=== PATIENT | female | born 1965 | race American Indian/Alaskan Native ===

== ENCOUNTER 2016-11-24 08:21 | Emergency (ER) | payer BC ==
[2016-11-24 08:34] VITALS: TEMP 98.3
[2016-11-24] MEDS ORDERED: Sodium Chloride 0.9% 1,000 ML IV ONE (09:21)
[2016-11-24] MEDS ORDERED: Sodium Chloride 0.9% 1,000 ML ONE (09:32)
[2016-11-24 09:35] LABS: WHITE BLOOD COUNT 6.9 K/uL (4.8-10.8)
[2016-11-24 09:41] LABS: HEMATOCRIT 32.3 % (34.0-47.0); MEAN CELL VOLUME 68.7 fL (81.0-99.0); MEAN CORPUSCULAR HEMOGLOBIN 21.9 pg (27.0-31.0); MEAN CORPUSCULAR HGB CONC 31.8 g/dL (33.0-37.0); MEAN PLATELET VOLUME 9.4 fL (7.2-11.7); RBC URINE 6946 /hpf (0-3); RED CELL DISTRIBUTION WIDTH 26.1 % (11.5-14.5); URINE BILIRUBIN NEGATIVE (NEGATIVE); URINE BLOOD 2+ (NEGATIVE); URINE COLOR Red (YELLOW); URINE GLUCOSE (UA) NORMAL (Normal); URINE KETONE TRACE mg/dL (NEGATIVE); URINE LEUKOCYTE ESTERASE NEG Leu/uL (Negative); URINE PROTEIN 2+ mg/dL (NEGATIVE); URINE UROBILINOGEN NORMAL mg/dL (0.2-1.0); WBC URINE 4 /hpf (0-5)
[2016-11-24 09:42] LABS: CHLORIDE 103 mmol/L (98-107); POTASSIUM 3.8 mmol/L (3.6-5.2); SODIUM 138 mmol/L (132-148)
[2016-11-24 09:45] LABS: BLOOD UREA NITROGEN 12 mg/dL (7-17); CARBON DIOXIDE 24 mmol/L (22-30); GFR AFRICAN-AMERICAN > 60; GLUCOSE,RANDOM 91 mg/dL (65-105)
[2016-11-24 09:46] LABS: CALCIUM 8.4 mg/dl (8.6-10.4)
--- NOTE | 2016-11-24 12:01 | US ---
HISTORY: vaginal bleeding, ovarian cyst COMPARISON: Pelvic ultrasound performed 12/22/14 TECHNIQUE: Real-time transabdominal pelvic ultrasound was performed. In addition a transvaginal pelvic ultrasound was necessary to better depict pelvic anatomy FINDINGS: UTERUS: Measures 11.0 x 5.7 x 6.0 cm. 1.6 x 1.4 x 2.1 cm mid left probable uterine fibroid. ENDOMETRIUM: Measures 1.8 cm in diameter. At least 3 cystic foci measuring up to 5 x 1 x 5 mm. CERVIX: No cervical abnormality identified. RIGHT OVARY: Measures 1.7 x 1.0 x 1.8 cm. Blood flow is demonstrated. 6.5 x 3.9 x 6.5 cm anechoic adnexal lesion compatible with cyst. LEFT OVARY: Measures 3.7 x 1.9 x 2.5 cm. Blood flow is demonstrated. FREE FLUID: No significant free fluid noted. OTHER FINDINGS: None. IMPRESSION: 6.5 cm right adnexal lesion compatible with a cyst. Recommend clinical correlation and 6 week ultrasound follow-up. Heterogeneous thickened endometrium with small cystic foci measuring up to 5 mm. 2.1 cm uterine fibroid.
[2016-11-24 12:02] VITALS: BP 176/94; PULSE 82; RESP 18; O2SAT 100
--- NOTE | 2016-11-24 12:34 | C.PDOC ---
History Of Present Illness 51 year old patient, with a surgical history of cholecystectomy, presents to the emergency department complaining of heavy vaginal bleeding during her menstrual cycle for the past 6 days. Patient reports her period has been irregular for the past 6 months. Patient also complains of a flutter in her chest and feeling light headed. She called her diesel truck technician, who instructed her to visit the emergency department for further evaluation. Patient reports she has a history of ovarian cysts. Patient denies fever, chills, nausea, vomiting, headache, or shortness of breath. Time Seen by Provider: 11/24/16 09:12 Chief Complaint (Nursing): Female Genitourinary History Per: Patient History/Exam Limitations: no limitations Onset/Duration Of Symptoms: Days (6) Current Symptoms Are (Timing): Still Present Severity: Mild Pain Scale Rating Of: 3 Quality Of Discomfort: Other Associated Symptoms: Chest Pain Alleviating Factors: None Recent travel outside of the [place]: No Abnormal Vaginal Bleeding: Yes Past Medical History Reviewed: Historical Data, Nursing Documentation, Vital Signs Vital Signs: Last Vital Signs Temp 98.3 F 11/24/16 11:55 Pulse 82 11/24/16 11:55 Resp 18 11/24/16 11:55 BP 176/94 H 11/24/16 11:55 Pulse Ox 100 11/24/16 12:42 Surgical History: Cholecystectomy Family History: States: Unknown Family Hx - Social History Hx Alcohol Use: No Hx Substance Use: No Review Of Systems Except As Marked, All Systems Reviewed And Found Negative. Constitutional: Negative for: Fever, Chills Cardiovascular: Positive for: Light Headedness, Other (flutter in chest) Respiratory: Negative for: Shortness of Breath Gastrointestinal: Negative for: Nausea, Vomiting Genitourinary: Positive for: Vaginal Bleeding Neurological: Negative for: Headache Physical Exam - Physical Exam Appears: Non-toxic, No Acute Distress Skin: Warm, Dry, Pale Head: Atraumatic, Normacephalic Eye(s): bilateral: Conjunctiva Pale Neck: Normal ROM, Supple Chest: Symmetrical Cardiovascular: Rhythm Regular Respiratory: Normal Breath Sounds, No Rales, No Rhonchi, No Wheezing Gastrointestinal/Abdominal: Soft, No Tenderness, No Guarding, No Rebound Back: Normal Inspection Extremity: Normal ROM Neurological/Psych: Oriented x3 Gait: Steady ED Course And Treatment - Laboratory Results Result Diagrams: 11/24/16 09:31 11/24/16 09:31 O2 Sat by Pulse Oximetry: 100 (room air) Pulse Ox Interpretation: Normal - CT Scan/US Pelvic/Transvaginal US Other Rad Studies (CT/US): Read By Radiologist (DR. Hoyt, Karmen Casas MD), Radiology Report Reviewed CT/US Interpretation: HISTORY: vaginal bleeding, ovarian cyst. COMPARISON: Pelvic ultrasound performed 12/22/14. TECHNIQUE: Real-time transabdominal pelvic ultrasound was performed. In addition a transvaginal pelvic ultrasound was necessary to better depict pelvic anatomy. FINDINGS: UTERUS: Measures 11.0 x 5.7 x 6.0 cm. 1.6 x 1.4 x 2.1 cm mid left probable uterine fibroid. ENDOMETRIUM: Measures 1.8 cm in diameter. At least 3 cystic foci measuring up to 5 x 1 x 5 mm. CERVIX: No cervical abnormality identified. RIGHT OVARY: Measures 1.7 x 1.0 x 1.8 cm. Blood flow is demonstrated. 6.5 x 3.9 x 6.5 cm anechoic adnexal lesion compatible with cyst. LEFT OVARY: Measures 3.7 x 1.9 x 2.5 cm. Blood flow is demonstrated. FREE FLUID: No significant free fluid noted. OTHER FINDINGS: None. IMPRESSION: 6.5 cm right adnexal lesion compatible with a cyst. Recommend clinical correlation and 6 week ultrasound follow-up. Heterogeneous thickened endometrium with small cystic foci measuring up to 5 mm. 2.1 cm uterine fibroid. Progress Note: Plan: -EKG. -Labs. -IV fluids. -Pelvic/Transvaginal US. - Reassess and disposition. Patient is resting comfortably, denies any chest pain , shortness of breath, or lightheadedness. Patient was not orthostatic in ED. Patient was instructed to follow up with her DEPARTMENTAL BUYER in 1-2 days, and to return to ED for worsening symptoms. Disposition Counseled Patient/Family Regarding: Studies Performed, Diagnosis, Need For Followup - Disposition Disposition: HOME/ ROUTINE Disposition Time: 12:36 Condition: STABLE Additional Instructions: Follow up with your IRRIGATION SYSTEM OPERATOR. Take all your results to him/her. Return to the ED with any further complaints. Instructions: Dysfunctional Uterine Bleeding (ED), Ovarian Cyst (ED) Forms: General Discharge Instructions, Work/School/Gym Excuse - POA Present On Arrival: None - Clinical Impression Clinical Impression: Right ovarian cyst, Vaginal bleeding, Mild anemia - Scribe Statement The provider has reviewed the documentation as recorded by the Scribe Huma Reyez Provider Attestation: All medical record entries made by the Scribe were at my direction and personally dictated by me. I have reviewed the chart and agree that the record accurately reflects my personal performance of the history, physical exam, medical decision making, and the department course for this patient. I have also personally directed, reviewed, and agree with the discharge instructions and disposition.
[2016-11-24 13:30] LABS: LYMPH # 1.6 K/uL (1.0-4.3); MONO # 0.3 K/uL (0.0-0.8)
[2016-11-24 13:31] LABS: BASO # 0.1 K/uL (0.0-0.2); EOS # 0.1 K/uL (0.0-0.7)
--- NOTE | 2016-11-25 11:05 | CARD ---
APPROVED REPORT EKG Measurement Heart [id number] <Conclusion> Normal sinus rhythm Normal ECG
== END 2016-11-24 12:51 | disposition home or self-care (01) ==
LOC: C.ER 08:21
DX: N83.201 Unspecified ovarian cyst, right side (principal); N93.9 Abnormal uterine and vaginal bleeding, unspecified; D64.9 Anemia, unspecified
CPT/HCPCS: 76830; 76856; 80048; 81001; 84703; 85025; 93005; 96360; 99285; J7040

== ENCOUNTER 2017-01-22 18:53 | Emergency (ER) | payer BC ==
[2017-01-22 18:53] VITALS: BMI 19.3
[2017-01-22 19:17] VITALS: TEMP 98.5
[2017-01-22 19:41] LABS: HEMATOCRIT 34.5 % (34.0-47.0); MEAN CELL VOLUME 69.9 fL (81.0-99.0); MEAN CORPUSCULAR HEMOGLOBIN 22.9 pg (27.0-31.0); MEAN CORPUSCULAR HGB CONC 32.7 g/dL (33.0-37.0); MEAN PLATELET VOLUME 8.8 fL (7.2-11.7); PLATELET COUNT 99 K/uL (130-400); RED CELL DISTRIBUTION WIDTH 25.6 % (11.5-14.5); WHITE BLOOD COUNT 5.9 K/uL (4.8-10.8)
[2017-01-22 19:44] LABS: CHLORIDE 101 mmol/L (98-107); POTASSIUM 3.5 mmol/L (3.6-5.2); SODIUM 137 mmol/L (132-148)
[2017-01-22 19:46] LABS: AST/SGOT 13 U/L (14-36); BILIRUBIN,TOTAL 1.4 mg/dL (0.2-1.3); CARBON DIOXIDE 22 mmol/L (22-30); GFR AFRICAN-AMERICAN > 60
[2017-01-22 19:47] LABS: ALB/GLOB RATIO 1.4 (1.0-2.1); ALKALINE PHOSPHATASE 58 U/L (38-126); ALT/SGPT 13 U/L (9-52); BLOOD UREA NITROGEN 16 mg/dL (7-17); CALCIUM 8.3 mg/dl (8.6-10.4); GLUCOSE,RANDOM 121 mg/dL (65-105); TOTAL PROTEIN 7.4 g/dL (6.3-8.3)
[2017-01-22 20:01] VITALS: O2SAT 100
[2017-01-22 20:07] LABS: BASOPHIL 1 % (0-2); EOSINOPHIL 1 % (0-4); NEUTROPHIL 73 % (50-75); REACTIVE LYMPHOCYTES 2 % (0-0); TOTAL CELLS COUNTED 100
[2017-01-22 20:35] VITALS: BP 152/80; PULSE 74; RESP 20
--- NOTE | 2017-01-22 21:27 | C.PDOC ---
History Of Present Illness 51 year old female presents to the ED with complaints of left forearm numbness since 5:30pm today. Patient states she was carrying heavy objects on her forearm earlier today and notes symptoms are slowly improving. She denies any fever, ataxia, or slurring in speech. Chief Complaint (Nursing): Headache History Per: Patient History/Exam Limitations: no limitations Onset/Duration Of Symptoms: Hrs (5:30pm today) Current Symptoms Are (Timing): Better Quality: Other (numbness) Associated Symptoms: denies: Photophobia, Blurred Vision, Nausea, Vomiting Recent travel outside of the [place]: No Past Medical History Reviewed: Historical Data, Nursing Documentation, Vital Signs Vital Signs: Last Vital Signs Temp 98.5 F 01/22/17 19:14 Pulse 74 01/22/17 20:34 Resp 20 01/22/17 20:34 BP 152/80 H 01/22/17 20:34 Pulse Ox 100 01/22/17 21:30 - Medical History PMH: Anemia, Gastritis, Gall Bladder Disease, Migraine (WITH MENSES) Surgical History: Cholecystectomy Family History: States: Unknown Family Hx - Social History Hx Alcohol Use: No Hx Substance Use: No Review Of Systems Constitutional: Negative for: Fever, Chills Cardiovascular: Negative for: Chest Pain, Palpitations Respiratory: Negative for: Cough, Shortness of Breath Gastrointestinal: Negative for: Nausea, Vomiting, Abdominal Pain, Diarrhea Neurological: Positive for: Numbness (of the left forearm ). Negative for: Change in Speech, Headache, Dizziness Physical Exam - Physical Exam Appears: Non-toxic, No Acute Distress Skin: Warm, Dry Head: Atraumatic Eye(s): bilateral: Normal Inspection, PERRL, EOMI Oral Mucosa: Moist Neck: Supple Chest: Symmetrical, No Deformity Cardiovascular: Rhythm Regular Respiratory: No Rales, No Rhonchi, No Stridor, No Wheezing Gastrointestinal/Abdominal: Soft, No Tenderness, No Distention, No Guarding, No Rebound Extremity: Normal ROM, No Tenderness, No Calf Tenderness Neurological/Psych: Oriented x3, Normal Speech, Normal Cognition, Normal Cranial Nerves, Normal Motor, Normal Sensation, Normal Reflexes Gait: Steady ED Course And Treatment - Laboratory Results Result Diagrams: 01/22/17 19:32 01/22/17 19:32 ECG: Interpreted By Me, Viewed By Me ECG Rhythm: Sinus Rhythm (80 bpm) Interpretation Of ECG: Normal axis. Normal intervals. O2 Sat by Pulse Oximetry: 100 (room air ) Disposition - Disposition Referrals: [facility] Abiel Edelmirajessica, [Non-Staff] - Disposition: HOME/ ROUTINE Disposition Time: 20:20 Condition: GOOD Additional Instructions: Thank you for letting us take care of you today. Your provider was Dr. Thao. You were treated for numbness. The emergency medical care you received today was directed at your acute symptoms. If you were prescribed any medication, please fill it and take as directed. It may take several days for your symptoms to resolve. Return to the Emergency Department if your symptoms worsen, do not improve, or if you have any other problems. Please contact your doctor or call one of the physicians/clinics you have been referred to that are listed on the Patient Visit Information form that is included in your discharge packet. Bring any paperwork you were given at discharge with you along with any medications you are taking to your follow up visit. Our treatment cannot replace ongoing medical care by a primary care provider (PCP) outside of the emergency department. Thank you for allowing the [facility] team to be part of your care today. Follow up with your doctor in 2-3 days for re-evaluation. Instructions: Paresthesia (ED) - Clinical Impression Clinical Impression: Paresthesia - Scribe Statement The provider has reviewed the documentation as recorded by the Scribe Melly Stewart All medical record entries made by the Scribe were at my direction and personally dictated by me. I have reviewed the chart and agree that the record accurately reflects my personal performance of the history, physical exam, medical decision making, and the department course for this patient. I have also personally directed, reviewed, and agree with the discharge instructions and disposition.
--- NOTE | 2017-01-23 08:18 | CT ---
PROCEDURE: CT HEAD WITHOUT CONTRAST. HISTORY: r/o ICH, headache and left arm weakness. COMPARISON: None available. TECHNIQUE: Axial computed tomography images were obtained through the head/brain without intravenous contrast. Radiation dose: Total exam DLP = 820.77 mGy-cm. This CT exam was performed using one or more of the following dose reduction techniques: Automated exposure control, adjustment of the mA and/or kV according to patient size, and/or use of iterative reconstruction technique. FINDINGS: HEMORRHAGE: No intracranial hemorrhage. BRAIN: Mnuoz-white matter differentiation is preserved. There is no mass, mass effect or abnormal extra-axial fluid collection. VENTRICLES: There is mild global parenchymal volume loss and proportionate enlargement of the ventricles and cortical sulci, advanced for the patient's age. CALVARIUM: The skull base and calvarium are normal. PARANASAL SINUSES: Predominantly clear. MASTOID AIR CELLS: Predominantly clear. OTHER FINDINGS: None. IMPRESSION: No acute intracranial abnormality. Mild age advanced global parenchymal volume loss. A preliminary report was provided by [employer] [facility].
--- NOTE | 2017-01-25 14:06 | CARD ---
APPROVED REPORT EKG Measurement Heart [id number] ID [id number] <Conclusion> Normal sinus rhythm Normal ECG
== END 2017-01-22 20:35 | disposition home or self-care (01) ==
LOC: C.ER 18:53
DX: R20.9 Unspecified disturbances of skin sensation (principal)

== ENCOUNTER 2017-01-29 06:14 | Day surgery (SDC) | payer BC ==
[2017-01-21 09:20] VITALS: BMI 19.3
[2017-01-29] MEDS ORDERED: Midazolam 2 MG/2 ML VIAL ONE (07:30)
[2017-01-29] MEDS ORDERED: Propofol 10 mg/ml Inj (20 ML) ONE (07:30)
[2017-01-29] MEDS ORDERED: Lactated Ringer's 1,000 ML IV ONE ×3 (07:47→10:15)
[2017-01-29] MEDS ORDERED: HYDROmorphone 0.5 mg/0.5 ml ISec IVP PRN (08:59)
--- NOTE | 2017-01-29 10:23 | PCM.SURG1 ---
Surgeon's Initial Post Op Note - Surgeon's Notes Surgeon: Lane Reyez MD Price Lister: none Type of Anesthesia: General LMA Pre-Operative Diagnosis: Post menoppausal bleeding Operative Findings: 10 week size uterus, thickened white endometrium, no masses , bilateral ostial visualized. Post-Operative Diagnosis: same as above Operation Performed: Operative hysteroscopy, fractional dilation and currettage Specimen/Specimens Removed: endocervical currettings, endometrial currettings Estimated Blood Loss: EBL {In ML}: 5 Blood Products Given: N/A Drains Used: No Drains Date of Surgery/Procedure: 01/29/17 Time of Surgery/Procedure: 08:30
[2017-01-29 11:07] VITALS: TEMP 97.6
[2017-01-29 11:43] VITALS: BP 130/67; PULSE 79; RESP 20; O2SAT 100
--- NOTE | 2017-02-09 16:27 | OP ---
PROCEDURE DATE: 01/29/2017 SURGEON: Heide Reyez MD MATERIAL LIAISON: None. TYPE OF ANESTHESIA: General, LMA. PREOPERATIVE DIAGNOSIS: Postmenopausal bleeding. OPERATIVE FINDINGS: A 10-week sized uterus, thickened white endometrium, no mass. Bilateral ostia visualized. POSTOPERATIVE DIAGNOSIS: Postmenopausal bleeding. OPERATIONS PERFORMED: Operative hysteroscopy, fractional dilatation and curettage. SPECIMEN REMOVED: Endocervical curetting, endometrial curetting. ESTIMATED BLOOD LOSS: 5 mL. BLOOD PRODUCTS: None. COMPLICATIONS: None. PROCEDURE IN DETAIL: The patient was taken to the operating room where she was given general anesthesia and once it was found to be adequate, the patient was placed on the operating table in the dorsal lithotomy position with legs spread using stirrups. The patient was then prepped and draped in the usual sterile fashion. A time-out confirmed correct patient and correct procedure. Bimanual exam was performed with above mentioned findings. Red rubber catheter was introduced into the urethra and into bladder. Marion retractor was placed on anterior and posterior fornix of the vagina and the cervical cavity was visualized. Single-tooth tenaculum was placed on the anterior lip of the cervix. Endocervical curettings were obtained with a Kevorkian curette and sent to pathology on [facility]. Uterus was then sounded and the cervix was sequentially dilated to allow for introduction of 5 mm hysteroscope under direct visualization using normal saline as distention media. Bilateral ostia were visualized and there was no growth or masses noted within the cavity. The hysteroscope was then removed and gentle curettage was done 360 degrees until a gritty texture was noted and the specimen was sent to pathology on [facility] noted as endometrial curetting. All instruments removed. Single-tooth tenaculum was removed. There was good hemostasis at the tenaculum puncture site. At the end of the procedure, all needles, sponge and instrument counts was noted as correct x2. The patient tolerated the procedure well and was transferred to recovery room in stable condition. Heide Reyez MD
== END 2017-01-29 11:30 | disposition home or self-care (01) ==
LOC: C.SDS 06:14
PROVIDERS: ATTEND Obstetrics & Gynecology
DX: N84.0 Polyp of corpus uteri (principal); N95.1 Menopausal and female climacteric states; N93.9 Abnormal uterine and vaginal bleeding, unspecified
CPT/HCPCS: 58558; 88305; J1100; J2250; J2405; J2704; J3010; J7120